=== PATIENT | male | born 1980 | race Two or more races ===

== ENCOUNTER 2022-03-05 03:32 | Emergency (ER) | payer SELFPAY ==
[2022-03-05] MEDS ORDERED: Hydrogen Peroxide 3% Top Soln 473 ML Bottle TOP ONE (03:33)
[2022-03-05] MEDS ORDERED: Diphtheria,Pertussis(Acell),Tetanus Vaccine 0.5 ML Syringe IM ONE (04:02)
== END 2022-03-05 04:23 | disposition left against medical advice (07) ==
LOC: MW.ED 03:32
DX: S01.01XA Laceration without foreign body of scalp, initial encounter (principal); S60.512A Abrasion of left hand, initial encounter; W22.09XA Striking against other stationary object, initial encounter
CPT/HCPCS: 73130-26-LT; 73130-LT; 90471; 90715; 99283-25

== ENCOUNTER 2022-03-05 06:19 | Emergency (ER) | payer SELFPAY ==
[2022-03-05] MEDS ORDERED: Lidocaine 1% with EPINEPHrine 1:100,000 10 ML MDV INJECT ONE (06:37)
== END 2022-03-05 06:46 | disposition home or self-care (01) ==
LOC: MW.ED 06:19
DX: S01.01XA Laceration without foreign body of scalp, initial encounter (principal); S80.219A Abrasion, unspecified knee, initial encounter; W22.09XA Striking against other stationary object, initial encounter
CPT/HCPCS: 99282